=== PATIENT | female | born 1980 | race Two or more races ===

== ENCOUNTER → 2019-07-31 | Day surgery (SDC) | payer OTHER ==
[~2019-07-31] VITALS: Ht 170.2 cm; Wt 59.0 kg
[~2019-07-31] MED LIST: [UNRECOGNIZED DRUG - OTHER]
--- NOTE | 2019-07-31 07:25 | NUR ---
SE RECIBE PTE. FEMENIN ALERTA CONCIENTE Y ORIENTADA EN COMPANIA DE FAMILIAR PTE. REFIERE VIENE CON ORDENES DE DR. DIANELYS STANLEY PARA PREPARCION PARA SE LLEVADA A PATRICIA DE OPERACIONES POR SANGRADO VAGINAL SE PASA A AREA DE OBSERVACION.
--- NOTE | 2019-07-31 08:05 | NUR ---
PACIENTE ALERTA Y ORIENTADA EN NUSRAT OLGA LIDIA ESFERAS. SE ORIENTA A PACIENTE SOBRE PROCEDIMIENTO Y TX, REFIERE ENTENDER. EXTRAE MUESTRAS DE LABORATORIO CON MEDIDAS ASEPTICAS Y SE ADMINISTRA MEDICAMENTOS LEV ORDEN MEDICA.
== END | disposition home or self-care (01) ==
LOC: CIR.AMB 07:00 → ER 07:11 → O/R 07:48 → ER 07:48 → EDSTATUS 09:00 → CIR.AMB 09:00 → O/R 16:35
DX: O03.4 Incomplete spontaneous abortion without complication (principal)

== ENCOUNTER → 2020-02-17 | Outpatient (CLI) | payer OTHER | END | disposition home or self-care (01) | LOC: PRENATAL 13:51 | PROVIDERS: ATTEND Obstetrics & Gynecology Maternal & Fetal Medicine | DX: Z36.89 Encounter for other specified antenatal screening (principal); O36.80X1 Pregnancy with inconclusive fetal viability, fetus 1; O09.521 Supervision of elderly multigravida, first trimester; Z3A.11 11 weeks gestation of pregnancy ==

== ENCOUNTER → 2020-04-07 | Outpatient (CLI) | payer OTHER | END | disposition home or self-care (01) | LOC: PRENATAL 09:00 | PROVIDERS: ATTEND Obstetrics & Gynecology Maternal & Fetal Medicine | DX: O35.0XX1 Maternal care for (suspected) central nervous system malformation in fetus, fetus 1 (principal); O35.3XX1 Maternal care for (suspected) damage to fetus from viral disease in mother, fetus 1; O98.512 Other viral diseases complicating pregnancy, second trimester; O09.522 Supervision of elderly multigravida, second trimester; Z36.89 Encounter for other specified antenatal screening; Z3A.18 18 weeks gestation of pregnancy ==

== ENCOUNTER → 2020-07-06 | Outpatient (CLI) | payer OTHER | END | disposition home or self-care (01) | LOC: PRENATAL 09:00 | PROVIDERS: ATTEND Obstetrics & Gynecology Maternal & Fetal Medicine | DX: O26.843 Uterine size-date discrepancy, third trimester (principal); O09.513 Supervision of elderly primigravida, third trimester; Z36.89 Encounter for other specified antenatal screening; Z3A.31 31 weeks gestation of pregnancy ==

== ENCOUNTER 2020-08-23 09:00 | Inpatient (IN) | payer OTHER ==
[~2020-08-23] VITALS: Ht 170.2 cm; Wt 2.7 kg
[2020-08-23] MEDS ORDERED: PREBIOTIC PO (12:46)
[2020-08-23] MEDS ORDERED: PRENA1 TRUE CO1 EACH PO (12:46)
[2020-08-23] MEDS ORDERED: ADK PO (12:47)
[2020-08-27] MEDS ORDERED: PROBIOTIC1 EAC2 PO (08:07)
== END 2020-08-29 11:19 | disposition home or self-care (01) | DRG 788 ==
LOC: O/R 08-27 06:56 → OB/GYN 08-27 08:30 → SURG-SUITE 08-27 14:57
PROVIDERS: ADMIT Specialist; ATTEND Specialist
PROC: 4A1HXFZ Monitoring of Products of Conception, Cardiac Rhythm, External Approach (ICD-10-PCS; 2020-08-27)
PROC: 10D00Z1 Extraction of Products of Conception, Low, Open Approach (ICD-10-PCS; principal; 2020-08-27 09:30)
DX: O65.5 Obstructed labor due to abnormality of maternal pelvic organs (principal); O34.211 Maternal care for low transverse scar from previous cesarean delivery; Z3A.39 39 weeks gestation of pregnancy; Z37.0 Single live birth